=== PATIENT | male | born 1990 | race Caucasian/White ===

== ENCOUNTER 2018-01-29 23:45 | Emergency (ER) | payer SELFPAY ==
[~2018-01-29] VITALS: Ht 175.3 cm; Wt 116.1 kg
[2018-01-29 23:58] VITALS: BP 126/89; Ht 175.3 cm; Wt 116.1 kg
== END 2018-01-30 00:23 | disposition home or self-care (01) ==
LOC: ED 23:45
DX: H01.006 Unspecified blepharitis left eye, unspecified eyelid (principal)

== ENCOUNTER 2019-02-07 10:24 | Emergency (ER) | payer OTHER, MEDICAID ==
[~2019-02-07] VITALS: Ht 180.3 cm; Wt 138.3 kg
[2019-02-07 10:36] VITALS: Ht 180.3 cm; Wt 138.3 kg
[2019-02-07 12:50] LABS: BASOPHIL % 0.5 % (0-2); PLATELET COUNT 279 x10^3mcL (130-400); RED CELL DISTRIBUTION WIDTH 12.7 % (11.5-14.5)
[2019-02-07 13:13] LABS: CARBON DIOXIDE 14.5 mmol/L (21-32); CHLORIDE SERUM 95 mmol/L (98-107); CREATININE SERUM 1.1 mg/dL (0.7-1.3); GFR1 > 60 mL/min; GLUCOSE SERUM 356 mg/dL (74-106); POTASSIUM SERUM 4.5 mmol/L (3.5-5.1); SODIUM SERUM 130 mmol/L (136-145)
[2019-02-07 13:17] LABS: ALKALINE PHOSPHATASE 115 U/L (46-116); ALT/SGPT 25 U/L (16-63); AST/SGOT 8 U/L (15-37); BILIRUBIN TOTAL 1.1 mg/dL (0.20-1.00)
[2019-02-07 13:24] LABS: ALBUMIN 3.3 g/dL (3.4-5.0); TOTAL PROTEIN, SERUM 8.5 g/dL (6.4-8.2)
[2019-02-07 13:25] LABS: C REACTIVE PROTEIN 16.2 mg/dL (<=0.9)
[2019-02-07 13:49] LABS: ERYTHROCYTE SED RATE 56 mm/hr (0-15)
[2019-02-07 16:59] LABS: AMPHETAMINE QUAL UR NONE DETECTED (See below)
[2019-02-07 20:45] VITALS: BP 144/88
== END 2019-02-07 20:45 | disposition short-term general hospital (02) ==
LOC: ED 10:24
PROVIDERS: Specialist
DX: E11.10 Type 2 diabetes mellitus with ketoacidosis without coma (principal); L02.31 Cutaneous abscess of buttock; L03.317 Cellulitis of buttock
CPT/HCPCS: 36600; J1815; J2270; J2405; J2543; J3490; J7030

== ENCOUNTER 2020-02-02 22:44 | Emergency (ER) | payer MEDICAID ==
[~2020-02-02] VITALS: Ht 175.3 cm; Wt 96.8 kg
[2020-02-02 22:58] VITALS: Ht 175.3 cm; Wt 96.8 kg
[2020-02-02 23:56] VITALS: BP 109/63
== END 2020-02-02 23:56 | disposition home or self-care (01) ==
LOC: ED 22:44
DX: S61.211A Laceration without foreign body of left index finger without damage to nail, initial encounter (principal); W26.0XXA Contact with knife, initial encounter; Y93.89 Activity, other specified; Y92.89 Other specified places as the place of occurrence of the external cause; Y99.8 Other external cause status